=== PATIENT | male | born 1950 | race Caucasian/White ===

== ENCOUNTER 2022-03-13 01:08 | Day surgery (SDC) | payer OTHER, SELFPAY ==
[2022-03-01 10:10] VITALS: BMI 25.9
[2022-03-13 06:26] VITALS: BP 127/69; PULSE 86; RESP 18; TEMP 36.1; O2SAT 97
[2022-03-13] MEDS: LACTATED RINGERS 1,000 ML 150 ML IV CONT (06:39)
--- NOTE | 2022-03-13 06:48 | P.HP_ITS ---
History of Present Illness History of Present Illness Consent: Risks, benefits, and alternatives have been discussed and questions answered. Patient agrees to proceed with procedure. Chief complaint: hx of colon polyps Narrative: Lucian Mohan is a 71 year old male History of colon polyps who is here for colon cancer screening. Review of Systems Review of Systems: All systems reviewed & are unremarkable except as noted in HPI and below PMFSH Past Medical History Medical History Skin cancer, basal cell Family History Family History Father Family history of glaucoma Family history of Parkinson's disease Mother Family history of malignant neoplasm of breast in first degree relative Social History Social History Tobacco type: cigars Smoking end date: 11/17/12 Additional smoking assessment comments: 1-2 cigars daily for 10 years; parent smoked Alcohol intake: never Substance use: never Substance use type: does not use Living arrangements: with family Spiritual care concerns: No Meds Home Medications and Allergies Home Medications Medication Instructions Recorded Confirmed Type amlodipine 5 mg tablet See Rx Instructions .ROUTE 06/27/21 03/01/22 Rx .COMPLEX #90 tablet atorvastatin 20 mg tablet 20 mg PO BID 90 Days #180 tablet 06/28/21 03/01/22 Rx Allergies Allergy/AdvReac Type Severity Reaction Status Date / Time Penicillins Allergy Unknown Unknown Verified 03/13/22 06:24 Sulfa (Sulfonamide Allergy Unknown Unknown Verified 03/13/22 06:24 Antibiotics) Vital Signs Vital Signs - 24 hr 03/13/22 06:26 Temperature 36.1 C L Pulse Rate 86 Respiratory Rate 18 Blood Pressure 127/69 Pulse Oximetry 97 Exam 2 Const: General: alert Orientation/consciousness: patient oriented x3 Resp: Auscultation: clear to auscultation bilaterally Cardio: Rhythm: regular rhythm GI: GI Palp: Yes Soft to palpation and No Tenderness to palpation present (GI) Neuro: General: patient oriented x3 Assessment and Plan Assessment and plan (1) Colon cancer screening: Code(s): Z12.11 - Encounter for screening for malignant neoplasm of colon Status: Acute Assessment and Plan: Colonoscopy with possible biopsy or polypectomy or cautery or injection of substances.
--- NOTE | 2022-03-13 07:17 | WPDANESEPPF ---
Anes - Initial Pre Proc Eval Procedure: Operation Date: 03/13/22 07:30 Proposed Procedures p Screening Colonoscopy - Remy Zazueta MD Date/Time: 03/13/22 07:17 Surgeon: Remy Zazueta MD Pre Op Diagnosis: hx of colon polyps Patient Data Age: 71 Gender: M Height: 1.78 m Weight: 79.9 kg Last Vital Signs Temp 97 F L 03/13/22 06:26 Pulse 86 03/13/22 06:26 Resp 18 03/13/22 06:26 BP 127/69 03/13/22 06:26 Pulse Ox 97 03/13/22 06:26 Allergies Allergy/AdvReac Type Severity Reaction Status Date / Time Penicillins Allergy Unknown Unknown Verified 03/13/22 06:24 Sulfa (Sulfonamide Allergy Unknown Unknown Verified 03/13/22 06:24 Antibiotics) Home Medications Medication Instructions Recorded Confirmed Type amlodipine 5 mg tablet See Rx Instructions .ROUTE 06/27/21 03/01/22 Rx .COMPLEX #90 tablet atorvastatin 20 mg tablet 20 mg PO BID 90 Days #180 tablet 06/28/21 03/01/22 Rx Patient hx anesthesia problems: none Family hx anesthesia problems: none Results Review: All pre-operative results and documents have been reviewed as part of the pre-operative evaluation. [facility] Past Medical History Medical History Skin cancer, basal cell Family History Family History Father Family history of glaucoma Family history of Parkinson's disease Mother Family history of malignant neoplasm of breast in first degree relative Social History Social History Tobacco type: cigars Smoking end date: 11/17/12 Additional smoking assessment comments: 1-2 cigars daily for 10 years; parent smoked Alcohol intake: never Substance use: never Substance use type: does not use Living arrangements: with family Spiritual care concerns: No Anes - Eval Final PreProcedure Day of Procedure 03/13/22 07:17 Patient weight: normal Heart: regular rate and rhythm Lungs: clear to auscultation Airway: Mallampati scale class II Neurological: alert and oriented Last oral intake: >/= 8 hours ASA classification: III Emergent: no Anesthetic plan: proceed Anesthesia type and monitoring: general GIVS and standard monitoring Results Review: All pre-operative results and documents have been reviewed as part of the pre-operative evaluation. Informed Consent: The patient's anesthetic plan and its attendant risks and benefits were discussed with the patient/family/POA. Questions were solicited and answers provided to the satisfaction of the patient/family/POA.
[2022-03-13] MEDS: SIMETHICONE ORAL SUSPENSION 20 MG/0.3 ML 30 ML BOTTLE 0.6 ML IRRIGATION (07:36)
[2022-03-13 07:41] VITALS: BP 92/59; PULSE 64; RESP 16; O2SAT 96
[2022-03-13 07:51] VITALS: BP 91/58; PULSE 68; RESP 18; O2SAT 98
[2022-03-13 08:01] VITALS: BP 103/69; PULSE 60; RESP 20; O2SAT 100
== END 2022-03-13 08:15 | disposition home or self-care (01) ==
PROVIDERS: PCP Family Medicine; Visit Provider Internal Medicine Gastroenterology
PROC: 0DJD8ZZ Inspection of Lower Intestinal Tract, Via Natural or Artificial Opening Endoscopic (ICD-10-PCS; CPT 45378; principal; 2022-03-13 07:30)
DX: Z12.11 Encounter for screening for malignant neoplasm of colon (principal); K64.1 Second degree hemorrhoids; K57.30 Diverticulosis of large intestine without perforation or abscess without bleeding; Z86.010 Personal history of colon polyps; Z87.891 Personal history of nicotine dependence
CPT/HCPCS: 45378; J2704; J7120